=== PATIENT | male | born 1955 | race Caucasian/White ===

== ENCOUNTER 2018-04-08 23:52 | Emergency (ER) | payer OTHER ==
[2018-04-09 00:30] LABS: #Basophils 0.1 thou/uL (0.0-0.2); #Eosinphils 0.1 thou/uL (0.0-0.7); #Lymphocytes 1.5 thou/uL (1.20-3.40); #Monocytes 0.3 thou/uL (0.11-0.59); #Neutrophils 5.5 thou/uL (1.40-6.50); %Basophils 0.9 % (0.0-1.0); %Eosinophils 1.1 % (0.0-10.0); %Lymphocytes 20.1 % (21.0-51.0); %Monocytes 4.5 % (0.0-10.0); %Neutrophils 73.4 % (42.0-75.0); Hemoglobin 15.9 g/dL (14.0-18.0); Mean Corpuscular HGB CONC 32.7 g/dL (32.0-36.0); Mean Corpuscular Hemoglobin 30.6 pg (27.0-31.0); Mean Corpuscular Volume 93.4 fL (78.0-98.0); Platelet Count 319 thou/uL (130-400); RBC Distribution Width 12.5 % (11.5-14.5); Red Blood Cell (RBC) Count 5.21 mill/uL (4.70-6.10); White Blood Cell (WBC) Count 7.5 thou/uL (4.8-10.8)
[2018-04-09 00:52] LABS: ALT (SGPT) 14 U/L (8-55); AST (SGOT) 15 U/L (5-34); Albumin 4.2 g/dL (3.5-5.0); Alkaline Phosphatase 91 U/L (40-150); Anion Gap 12 mmol/L (10-20); BUN (Urea Nitrogen) 18 mg/dL (8.4-25.7); Bilirubin, Total 0.2 mg/dL (0.2-1.2); Calc. Creatinine Clearance 0 mL/min (70-130); Carbon Dioxide 21 mmol/L (22-29); Chloride 108 mmol/L (98-107); Estimated GFR-MDRD 81; Globulin 3.1 g/dL (2.4-3.5); Glucose 153 mg/dL (70-105); Potassium 4.1 mmol/L (3.5-5.1); Protein, Total 7.3 g/dL (6.0-8.3); Sodium 137 mmol/L (136-145)
[2018-04-09] MEDS ORDERED: Ketorolac Tromethamine 60 MG/2 ML VIAL ONE (00:52)
[2018-04-09 00:55] LABS: CKMB 2.7 ng/mL (0-6.6); Troponin I Less than 0.010 ng/mL (< 0.028)
[2018-04-09] MEDS ORDERED: Diazepam 5 MG TAB ONE (01:42)
--- NOTE | 2018-04-09 07:39 | RAD ---
PORTABLE AP CHEST XRAY: DATE: 04/09/18. HISTORY: Chest pain. COMPARISON: 06/21/14. FINDINGS: Cardiac silhouette is magnified by projection. The pulmonary vasculature is within normal limits. C alcified granuloma is seen at the lateral left lung base. The lungs are otherwise clear. No other i nterval change from the prior exam. IMPRESSION: No acute cardiopulmonary process. POS: [facility]
== END 2018-04-09 01:46 | disposition home or self-care (01) ==
LOC: ERS 23:52
DX: S16.1XXA Strain of muscle, fascia and tendon at neck level, initial encounter (principal); F17.210 Nicotine dependence, cigarettes, uncomplicated; Z71.6 Tobacco abuse counseling; X58.XXXA Exposure to other specified factors, initial encounter
CPT/HCPCS: 36415; 71045; 80053; 82553; 84484; 85025; 93005; 96372; 99406; J1885

== ENCOUNTER 2018-04-21 08:10 | Outpatient (CLI) | payer OTHER ==
--- NOTE | 2018-04-21 10:30 | MRI ---
MRI CERVICAL SPINE NONCONTRAST: Date: 04/21/18 HISTORY: 62-year-old male with M54.12 cervical radicular pain. Neck pain; and left shoulder and arm pain and numbness. COMPARISON: None available. FINDINGS: Cervical spinal cord is normal in size and signal. There is disc space narrowing that is moderate to severe at C3-4, mild to moderate at C4-5, severe at C5-6, and moderate at C7-T1. Disc spaces are pres erved at C2-3 and C6-7. Broad based disc-osteophytic bar complexes encroach upon the anterior aspect of the spinal canal at C3-4, C4-5, and C5-6, causing central spinal canal stenoses. Uncinate process osteophytes encroach upon bilateral neural foraminal, causing neural foraminal stenosis. Multilevel bilateral degenerative facet changes, mostly mild and moderate. Left C6-7 facet joint has severe degenerative facet changes. Vertebral body heights are maintained. There is a Grade I anteroli sthesis of C6 on C7 due to bilateral degenerative facet disease at that level. Findings regarding degree of central and neural foraminal stenosis are as follows: C1-2: No central stenosis. C2-3: No central stenosis. Mild to moderate bilateral neural foraminal stenosis. C3-4: No central stenosis. Severe right neural foraminal stenosis. Moderate to severe left neural fo raminal stenosis. C4-5: Moderate central spinal canal stenosis. Severe bilateral neural foraminal stenosis, left worse than right. C5-6: Moderate central stenosis. Moderate to severe bilateral neural foraminal stenosis, left worse than right. C6-7: No central stenosis. Mild to moderate right neural foraminal stenosis. Moderate left neural fo raminal stenosis. C7-T1: No central stenosis. Moderate to severe right neural foraminal stenosis. Mild to moderate lef t neural foraminal stenosis. IMPRESSION: 1. Moderate cervical spondylosis, with multilevel degenerative disc disease and facet osteoarthrosis . 2. Multilevel severe bilateral neural foraminal stenosis. POS: [facility]
== END 2018-04-21 08:11 | disposition home or self-care (01) ==
LOC: MRI 08:10
PROVIDERS: ATTEND Nurse Practitioner Family
DX: M47.22 Other spondylosis with radiculopathy, cervical region (principal); M50.10 Cervical disc disorder with radiculopathy, unspecified cervical region; M99.81 Other biomechanical lesions of cervical region
CPT/HCPCS: 72141

== ENCOUNTER 2018-08-04 06:33 | Outpatient (CLI) | payer OTHER ==
--- NOTE | 2018-08-05 20:57 | EKG ---
Test Reason : Blood Pressure : / mmHG Vent. Rate : 083 BPM Atrial Rate : 083 BPM P-R Int : 182 ms QRS Dur : 108 ms QT Int : 386 ms P-R-T Axes : 074 -44 062 degrees QTc Int : 453 ms Normal sinus rhythm Left axis deviation Pulmonary disease pattern Incomplete right bundle branch block Minimal voltage criteria for LVH, may be normal variant Abnormal ECG When compared with ECG of 09-APR-2018 00:07, Left posterior fascicular block is no longer Present Criteria for Septal infarct are no longer Present T wave inversion no longer evident in Inferior leads Confirmed by Lucy BANEGAS ([id number]) on 08/05/2018 8:57:00 PM Referred By: EDIL Confirmed By:Lucy BANEGAS
== END 2018-08-04 06:34 | disposition home or self-care (01) ==
LOC: LABBT 06:33
PROVIDERS: ATTEND Neurological Surgery
DX: Z01.818 Encounter for other preprocedural examination (principal); M54.12 Radiculopathy, cervical region
CPT/HCPCS: 93005; 93010

== ENCOUNTER 2018-08-12 05:40 | Day surgery (SDC) | payer OTHER ==
[2018-08-04 10:09] VITALS: BMI 25.8
--- NOTE | 2018-08-11 15:52 | HP ---
HISTORY OF PRESENT ILLNESS: Mr. Robertson is a very pleasant 62-year-old man presenting for evaluation of roughly five months worth of severe left-sided C6 pains and now involve the right upper extremity as well. He reports difficulty with shoulder abduction over the same time. He was referred to us by Dr. Choi, who has been administering injections at C5-6 which have helped, but only for short periods of time. This is all in the setting of an MRI from [place] that reveals severe bilateral neuroforaminal narrowing at C4-5 and C5-6 that I feel not only contribute to the pain and numbness, but also to shoulder weakness. He does have bilateral rotator cuff tears which Dr. Morse is following, so this certainly could be a contributing factor as well. PAST MEDICAL HISTORY: Significant for chronic pain syndrome, anxiety, hypertension. CURRENT MEDICATIONS: Include 1. Celebrex. 2. Tizanidine. 3. Medrol. 4. Amlodipine. 5. Brooks. ALLERGIES: NO KNOWN DRUG ALLERGIES. PAST SURGICAL HISTORY: Herniorrhaphy, bilateral knee arthroscopy, ORIF of the ankle on the right, bilateral toe amputations. ASSESSMENT: Cervical radiculopathy and shoulder weakness. PLAN: Dr. Cespedes met with the patient, reviewed imaging and advocated for a C4-C6 ACDF. He explained to the patient the risks, benefits, and alternatives to the procedure. The patient expressed understanding and elected to move forward with surgery as discussed. I do believe the patient is mentally competent and capable of making medical decisions for himself. We will move forward with surgery as planned. Job ID: [id number]
[2018-08-12] MEDS ORDERED: Thrombin 5000 UNITS/5 ML VIAL ONE (06:31)
[2018-08-12] MEDS ORDERED: Midazolam HCl 2 mg/2 ml Vial ONE (06:34)
[2018-08-12] MEDS ORDERED: CEFAZOLIN 2 GM/50 ML BAG ONE ×2 (06:35→10:23)
[2018-08-12] MEDS ORDERED: Fentanyl 250 MCG/5 ML VIAL ONE (06:35)
[2018-08-12] MEDS ORDERED: Fentanyl 100 MCG/2 ML VIAL ONE (09:09)
[2018-08-12] MEDS ORDERED: Tamsulosin HCl 0.4 MG CAP ONE (10:25)
[2018-08-12] MEDS ORDERED: PROPOFOL 200 MG/20 ML VIAL ONE (11:59)
[2018-08-12] MEDS ORDERED: Rocuronium Bromide 10 MG/ML (10ML VIAL) ONE (11:59)
--- NOTE | 2018-08-12 12:31 | OP ---
DATE OF PROCEDURE: 08/12/2018 MUSIC DEPARTMENT CHAIR: Earl Arenas PA-C INDICATION: Pain. DIAGNOSIS: Cervical radiculopathy. PROCEDURES PERFORMED: Anterior cervical diskectomy and fusion C4 through C6. ANESTHESIA: General. DESCRIPTION OF PROCEDURE: The patient was brought into the operating room and placed under general anesthesia. He was placed on table in a supine position. A transverse incision was planned over the lateral aspect of the neck on the right. After prepping and draping and after preoperative pause, the incision was created. The underlying platysma muscle was identified and incised. A blunt tissue plane anterior to the sternocleidomastoid muscle was used to gain access to the prevertebral space. After identifying the appropriate levels with C-arm fluoroscopy, an annulotomy was performed in C5-C6 disk space. Under distraction with distraction pins, all disk material as well as anterior and posterior osteophytes were removed. A 7 mm lordotic PEEK cage packed with allograft and autograft material were placed within the interbody space. We then redirected our attention to the level above at C4-C5, where again an annulotomy was performed. The disk material as well as anterior and posterior osteophytes were removed until the underlying spinal canal and exiting nerve roots were decompressed. A 6 mm lordotic PEEK cage packed with allograft and autograft material were placed within the interbody space. An anterior cervical plate was then fashioned from the spine and secured with a total of 6 screws. Midline and lateral structures were then inspected and found to be free from significant trauma. The wound was irrigated. Hemostasis was maintained throughout. The wound was then closed in anatomic layers and a pressure dressing was applied. There were no known procedural complications. Job ID: [id number]
== END 2018-08-12 10:55 | disposition home or self-care (01) ==
LOC: SDC 05:40
PROVIDERS: ATTEND Neurological Surgery
PROC: 0RG2070 Fusion of 2 or more Cervical Vertebral Joints with Autologous Tissue Substitute, Anterior Approach, Anterior Column, Open Approach (ICD-10-PCS; principal; 2018-08-12)
PROC: 0RG20A0 Fusion of 2 or more Cervical Vertebral Joints with Interbody Fusion Device, Anterior Approach, Anterior Column, Open Approach (ICD-10-PCS; principal; 2018-08-12)
DX: M54.12 Radiculopathy, cervical region (principal); I10 Essential (primary) hypertension; G89.4 Chronic pain syndrome; F41.9 Anxiety disorder, unspecified; Z79.1 Long term (current) use of non-steroidal anti-inflammatories (NSAID); Z79.899 Other long term (current) drug therapy; Z98.890 Other specified postprocedural states
CPT/HCPCS: 76000; C1713; C1776; J2250; J2704; J3010

== ENCOUNTER 2019-01-31 08:19 | Outpatient (CLI) | payer OTHER ==
--- NOTE | 2019-01-31 08:52 | RAD ---
Cervical spine 3 views: 01/31/2019 COMPARISON: None HISTORY: Left arm pain, shoulder pain, neck pain FINDINGS: Anterior discectomy and fusion hardware is present at C4-5/C6-C7. There is mild retrolisthesis at C3-4 measuring 3 mm and there is mild anterolisthesis at C6-7 measuri ng 4 mm. There is disc space narrowing with degenerative endplate change at C3-4. Open-mouth odontoid view dem onstrates a grossly unremarkable dens and C1-2 articulation. There is multilevel prominent bilateral facet and uncovertebral osteophyte formation, left greater than right. IMPRESSION: Multilevel postoperative and degenerative change within the cervical spine as detailed ab ove.
== END 2019-01-31 08:20 | disposition home or self-care (01) ==
LOC: TBSIIMAG 08:19
PROVIDERS: ATTEND Neurological Surgery
DX: M47.22 Other spondylosis with radiculopathy, cervical region (principal); Z98.890 Other specified postprocedural states
CPT/HCPCS: 72040

== ENCOUNTER 2021-09-01 10:38 | Outpatient (CLI) | payer MEDICARE | END 2021-09-01 10:39 | disposition home or self-care (01) | LOC: BICRAD 10:38 | PROVIDERS: ATTEND Family Medicine | DX: M47.22 Other spondylosis with radiculopathy, cervical region (principal); M54.17 Radiculopathy, lumbosacral region; M47.816 Spondylosis without myelopathy or radiculopathy, lumbar region; M25.561 Pain in right knee; M17.11 Unilateral primary osteoarthritis, right knee | CPT/HCPCS: 72040; 72100 ==

== ENCOUNTER 2021-11-28 08:08 | Outpatient (CLI) | payer MEDICARE ==
[2021-11-28] MEDS ORDERED: Iopamidol-370 76% 500 ML 1 ML ONE (09:44)
== END 2021-11-28 08:09 | disposition home or self-care (01) ==
LOC: BICCT 08:08
PROVIDERS: ATTEND Family Medicine
DX: R10.9 Unspecified abdominal pain (principal)
CPT/HCPCS: 74178; 82565; Q9967

== ENCOUNTER 2022-04-03 07:59 | Outpatient (CLI) | payer MEDICARE | END 2022-04-03 08:00 | disposition home or self-care (01) | LOC: TBSIIMAG 07:59 | PROVIDERS: ATTEND Neurological Surgery | DX: M47.22 Other spondylosis with radiculopathy, cervical region (principal); M54.50 Low back pain, unspecified; M48.02 Spinal stenosis, cervical region; M47.816 Spondylosis without myelopathy or radiculopathy, lumbar region; M48.061 Spinal stenosis, lumbar region without neurogenic claudication; M48.07 Spinal stenosis, lumbosacral region | CPT/HCPCS: 72141; 72148 ==

== ENCOUNTER 2022-06-25 14:11 | Outpatient (CLI) | payer MEDICARE | END 2022-06-25 14:12 | disposition home or self-care (01) | LOC: BICCT 14:11 | PROVIDERS: ATTEND Neurological Surgery | DX: M47.22 Other spondylosis with radiculopathy, cervical region (principal); Z98.890 Other specified postprocedural states | CPT/HCPCS: 72125 ==

== ENCOUNTER 2022-09-11 09:45 | Inpatient (IN) | payer MEDICARE ==
[2022-09-14 14:57] VITALS: BMI 23.6
[2022-09-16] MEDS ORDERED: Thrombin 5000 UNITS/5 ML VIAL ONE (06:10)
[2022-09-16] MEDS ORDERED: Midazolam HCl 2 mg/2 ml Vial ONE (06:38)
[2022-09-16] MEDS ORDERED: Lidocaine 1% MPF 2 ML VIAL ONE (06:40)
[2022-09-16] MEDS ORDERED: Fentanyl 250 MCG/5 ML VIAL ONE (06:40)
[2022-09-16] MEDS ORDERED: Sodium Chloride 0.9% 100 ML ONE ×2 (06:47→10:01)
[2022-09-16] MEDS ORDERED: CEFAZOLIN 2 GM VIAL ONE ×2 (06:47→10:00)
[2022-09-16] MEDS ORDERED: PROPOFOL 200 MG/20 ML VIAL ONE (07:02)
[2022-09-16] MEDS ORDERED: Glycopyrrolate 0.2 MG/ML 5 ML SYRINGE ONE (07:02)
[2022-09-16] MEDS ORDERED: Dexamethasone 20 MG/5 ML VIAL ONE (07:02)
[2022-09-16] MEDS ORDERED: Esmolol 100 MG/10 ML VIAL ONE (07:02)
[2022-09-16] MEDS ORDERED: NEOSTIGMINE 3 MG/3 ML SYR 3 MG/3 ML SYRINGE ONE (07:02)
[2022-09-16] MEDS ORDERED: Rocuronium Bromide 10 MG/ML (10ML VIAL) ONE (07:02)
[2022-09-16] MEDS ORDERED: Ondansetron PF 4 MG/2 ML Vial ONE (07:02)
[2022-09-16] MEDS ORDERED: Lidocaine 1% PF 5 ML VIAL ONE (07:02)
[2022-09-16] MEDS ORDERED: Tamsulosin HCl 0.4 MG CAP ONE (08:51)
== END 2022-09-16 11:05 | disposition home or self-care (01) | DRG 473 ==
LOC: SURG A 09-16 05:31
PROVIDERS: ADMIT Neurological Surgery; ATTEND Neurological Surgery
PROC: 0RG10A0 Fusion of Cervical Vertebral Joint with Interbody Fusion Device, Anterior Approach, Anterior Column, Open Approach (ICD-10-PCS; principal; 2022-09-16)
PROC: 0RB30ZZ Excision of Cervical Vertebral Disc, Open Approach (ICD-10-PCS; 2022-09-16)
PROC: 01N10ZZ Release Cervical Nerve, Open Approach (ICD-10-PCS; 2022-09-16)
DX: M50.123 Cervical disc disorder at C6-C7 level with radiculopathy (principal); M25.78 Osteophyte, vertebrae; G89.29 Other chronic pain; M19.90 Unspecified osteoarthritis, unspecified site; Z87.891 Personal history of nicotine dependence
CPT/HCPCS: C1713; C1889; J1100; J2250; J2405; J2704; J3010; J3490